=== PATIENT | male | born 1945 | race Caucasian/White ===

== ENCOUNTER 2023-11-26 16:40 | Emergency (ER) | payer OTHER, SELFPAY ==
[2023-11-26 16:50] VITALS: BP 135/80; PULSE 78; RESP 18; TEMP 36.4; O2SAT 96; BMI 28.5
--- NOTE | 2023-11-26 16:58 | DI.RAD.S_ITS ---
PROCEDURE: XR RIBS RT 2V INDICATIONS: Pain/fall/ bruising TECHNIQUE: 3 views of the ribs were acquired. COMPARISON: None. FINDINGS: Surgical changes and devices: None. Bones and chest wall: No fractures or dislocations. No suspicious bony lesions. Overlying soft tissues appear unremarkable. Lungs and pleura: The visualized lung appears clear. No pleural effusions or pneumothorax are visible. IMPRESSION: No displaced rib fracture. If clinically indicated CT chest could be considered for follow-up evaluation. Dictated by: Barber Nevarez M.D. on 11/26/2023 at 18:36 Approved by: Barber Nevarez M.D. on 11/26/2023 at 18:37
--- NOTE | 2023-11-26 20:14 | ED.FALL ---
HPI - Fall General Chief Complaint: Fall Stated Complaint: fell/back inj Time Seen by Provider: 11/26/23 20:09 History of Present Illness HPI Narrative: 78-year-old male with history of colon cancer, was standing at his home seeing 11 a.m. this morning when he slipped fell to the right side, glancing blow to his right chest, right posterior chest discomfort since then. No shortness of breath. No other injuries. Specifically he denies any injuries to his head, face, neck, upper back, mid back low back, left flank. He denies injuries to his upper extremities and lower extremities. He does not take blood thinner medications. He has had no nausea or vomiting. No antecedent fast heart or irregular heartbeat sensation, chest pain or shortness of breath, or weakness. Related Data Allergies Allergy/AdvReac Type Severity Reaction Status Date / Time No Known Drug Allergies Allergy Verified 11/26/23 16:50 Review of Systems Review of Systems Narrative: Per HPI Patient History Social History Smoking Status: Never smoker Smoking Status: Never smoker alcohol intake frequency: other Substance Use Type: does not use Exam Narrative Exam Narrative: GENERAL: Well-developed patient, in mild distress. HEAD: Atraumatic. Normocephalic. EYES: Pupils equal round and reactive. Extraocular motions intact. No scleral icterus. No injection or drainage. ENT: Nose without bleeding, purulent drainage. Throat without erythema, tonsillar hypertrophy or exudate. Airway patent. NECK: Trachea midline. Non tender CARDIOVASCULAR: Regular rate and rhythm without murmurs, gallops, or rubs. RESPIRATORY: Clear to auscultation. Breath sounds equal bilaterally. No wheezes, rales, or rhonchi. Right lateral posterior chest wall discomfort proximally T8 level, no crepitance, no bruising, no skin rash or vesicles. No paradoxical chest wall movements. GASTROINTESTINAL: Abdomen soft, non-tender, nondistended. Well-healed abdominal scars EXTREMITIES: No edema or joint tenderness. BACK: Nontender without deformity or crepitance. No flank tenderness. NEURO: AOx3. Grossly nonfocal SKIN: No rash or erythema of visible areas Initial Vital Signs Initial Vital Signs: Vital Signs Temperature 97.5 F L 11/26/23 16:50 Pulse Rate 78 11/26/23 16:50 Respiratory Rate 18 11/26/23 16:50 Blood Pressure 135/80 11/26/23 16:50 Pulse Oximetry 96 11/26/23 16:50 Oxygen Delivery Method Room Air 11/26/23 16:50 Course Orders Ordered: Discontinued Medications Albuterol (Albuterol Hfa Prepack) 1 box MISC DIRECTED ONE Stop: 11/26/23 20:21 Last Admin: 11/26/23 20:29 Dose: 1 box Documented By: GRANT Tramadol HCl (Tramadol 50 Mg Prepack) 1 bottle MISC DIRECTED ONE Stop: 11/26/23 20:21 Last Admin: 11/26/23 20:29 Dose: 1 bottle Documented By: GRANT Vital Signs Vital signs: Vital Signs - 8 hr 11/26/23 16:50 Temperature 97.5 F L Pulse Rate 78 Respiratory Rate 18 Blood Pressure 135/80 Pulse Oximetry 96 Oxygen Delivery Method Room Air MDM - Fall MDM Narrative Medical decision making narrative: 78-year-old with ground level fall slipped in the bathroom, right chest contusion, lungs clear, no respiratory distress, screening chest x-ray negative. We discussed pulmonary toilet, importance of analgesia and deep breathing. We will dispensed incentive spirometer with instruction. We will dispense inhaler to use with spacer. [id number] Tylenol and or ibuprofen. Home pack tramadol. Recheck lungs with regular provider in 2 days advised. Return precautions. Stable, home with family. Discharge Plan Departure Patient Disposition: Home Clinical Impression: Chest wall contusion Activity Restrictions/Additional Instructions: Mechanical fall right chest wall contusion by exam, chest x-ray negative for fracture or underlying lung injuries. It is important that you breathe deeply so the not develop pneumonia. Incentive spirometer with instructions. Use of inhaler and spacer to help expand the lungs. Take pain medications as needed. [id number] pain medications. Tramadol home pack also provided to use if needed. Recheck lung exam with your regular provider in the next couple of days. Return to this/nearest emergency department for any change worsening symptoms or any concerns prior Stand Alone Forms: Patient Portal/API
[2023-11-26] MEDS: ALBUTEROL HFA PREPACK 1 BOX MISC (20:29)
[2023-11-26] MEDS: TRAMADOL 50 MG PREPACK 1 BOTTLE MISC (20:29)
[2023-11-26 20:41] VITALS: BP 135/76; PULSE 69; RESP 18; O2SAT 97
== END 2023-11-26 20:45 | disposition home or self-care (01) ==
PROVIDERS: Emergency Provider Emergency Medicine
DX: S20.211A Contusion of right front wall of thorax, initial encounter (principal); W01.0XXA Fall on same level from slipping, tripping and stumbling without subsequent striking against object, initial encounter
CPT/HCPCS: 71100; 99283

== ENCOUNTER → 2023-12-04 10:03 | Outpatient (CLI) | payer OTHER, SELFPAY ==
--- NOTE | 2023-12-04 10:05 | DI.RAD.S_ITS ---
PROCEDURE: XR CHEST 2V INDICATIONS: Right side chest/back pain after fall TECHNIQUE: 2 views of the chest were acquired. COMPARISON: None. FINDINGS: Surgical changes and devices: Postsurgical changes are noted in left upper quadrant abdomen. Lungs and pleura: Lungs are clear. No pleural effusions or pneumothorax. Mediastinum: Mediastinal contours are normal. Heart size is normal. Bones and chest wall: No suspicious bony abnormalities. Soft tissues appear unremarkable. IMPRESSION: No acute cardiopulmonary pathology. Dictated by: Gamaliel Sykes M.D. on 12/04/2023 at 15:11 Approved by: Gamaliel Sykes M.D. on 12/04/2023 at 15:11
--- NOTE | 2023-12-04 10:05 | DI.RAD.S_ITS ---
PROCEDURE: XR LUMBAR SPINE 2-3V INDICATIONS: Right side chest/back pain after fall TECHNIQUE: 3 views of the lumbar spine were acquired. COMPARISON: None. FINDINGS: Bones: 5 [id number] vertebrae are present. There is 7 mm anterolisthesis of L4 on L5 and 5 mm retrolisthesis of L2 on L3. Degenerative endplate changes and bilateral facet arthrosis throughout lumbar spine is seen more notably at L4-5 and L5-S1 levels. No vertebral body compression fractures. No suspicious bony lesions. Soft tissues: Overlying bowel gas pattern is normal. No suspicious soft tissue calcifications. IMPRESSION: No acute vertebral body compression fracture. Degenerative disc disease throughout lumbar spine. Grade 1 spondylolisthesis at L2-3 and L4-5 levels as above. Dictated by: Gamaliel Sykes M.D. on 12/04/2023 at 15:11 Approved by: Gamaliel Sykes M.D. on 12/04/2023 at 15:12
== END ==
PROVIDERS: PCP Family Medicine; Referring Provider Family Medicine; Visit Provider Family Medicine
DX: S20.219A Contusion of unspecified front wall of thorax, initial encounter (principal); M51.36 Other intervertebral disc degeneration, lumbar region; M51.37 Other intervertebral disc degeneration, lumbosacral region; M47.816 Spondylosis without myelopathy or radiculopathy, lumbar region; M47.817 Spondylosis without myelopathy or radiculopathy, lumbosacral region; M43.16 Spondylolisthesis, lumbar region; M54.50 Low back pain, unspecified; W19.XXXA Unspecified fall, initial encounter
CPT/HCPCS: 71046; 72100